=== PATIENT | female | born 1990 | race Caucasian/White ===

== ENCOUNTER → 2022-04-29 | Day surgery (SDC) | payer BC | END | disposition home or self-care (01) | LOC: JMAMMO-SUR 11:56 → JASU-SURG 11:56 | PROVIDERS: ATTEND Registered Nurse | PROC: 0H9U3ZX Drainage of Left Breast, Percutaneous Approach, Diagnostic (ICD-10-PCS; principal; 2022-04-29) | DX: D48.62 Neoplasm of uncertain behavior of left breast (principal) | CPT/HCPCS: 19083; 87899; 88305-TC; A4648 ==

== ENCOUNTER 2022-07-29 05:09 | Day surgery (SDC) | payer BC ==
[2022-07-27 09:58] VITALS: BMI 26.3
[2022-07-29] MEDS ORDERED: SUCCINYLCHOLINE CHLORIDE 200 MG/10 ML SYRINGE ONE (15:03)
[2022-07-29] MEDS ORDERED: MIDAZOLAM HCL 2 MG/2 ML SINGLE DOSE VIAL ONE (15:03)
[2022-07-29] MEDS ORDERED: PROPOFOL 20 ML ONE (15:03)
[2022-07-29] MEDS ORDERED: KETAMINE HCL 200 MG/20 ML VIAL ONE (15:04)
[2022-07-29] MEDS ORDERED: BUPIVACAINE HCL/PF 0.25% (2.5MG/ML) 10 ML VIAL ONE (15:12)
[2022-07-29] MEDS ORDERED: DEXMEDETOMIDINE HCL 200 MCG/2 ML IVPB ONE (15:13)
[2022-07-29] MEDS ORDERED: LIDOCAINE HCL 1% EPINEPHRINE 1:200,000 30 ML VIAL (PF) ONE (15:24)
[2022-07-29] MEDS ORDERED: LIDOCAINE HCL 0.5%, 5 MG/ML (50mL SDVIAL) ONE (15:47)
[2022-07-29] MEDS ORDERED: LIDOCAINE HCL 0.5%, 5 MG/ML (50mL SDVIAL) PNB ONE (15:51)
[2022-07-29] MEDS ORDERED: BUPIVACAINE HCL/PF 0.25% (2.5MG/ML) 10 ML VIAL IJ ONE (16:02)
[2022-07-29] MEDS ORDERED: ONDANSETRON 4 MG/2 ML VIAL IVPUSH PRN (16:33)
[2022-07-29] MEDS ORDERED: LACTATED RINGERS SOLUTION 1,000 ML IV SCH (16:45)
[2022-07-29 18:05] VITALS: RESP 18; TEMP 97.5
[2022-07-29 18:21] VITALS: BP 109/56; PULSE 57
== END 2022-07-29 18:29 | disposition home or self-care (01) ==
LOC: JASU-SURG 05:09
PROVIDERS: ATTEND Surgery Surgical Oncology
PROC: 0HBU0ZX Excision of Left Breast, Open Approach, Diagnostic (ICD-10-PCS; principal; 2022-07-29 13:00)
DX: D24.2 Benign neoplasm of left breast (principal)
CPT/HCPCS: 81025; 88307-TC; 94760

== ENCOUNTER 2023-11-22 08:14 | Emergency (ER) | payer BC ==
[2023-11-22 08:24] VITALS: BP 115/56; PULSE 88; RESP 20; TEMP 99; BMI 28.1
[2023-11-22] MEDS ORDERED: ACETAMINOPHEN 500 MG TABLET (FP) PO ONE (09:11)
[2023-11-22] MEDS ORDERED: ACETAMINOPHEN 500 MG TABLET (FP) ONE (09:44)
== END 2023-11-22 10:36 | disposition home or self-care (01) ==
LOC: JER 08:14
DX: U07.1 COVID-19 (principal); R05.9 Cough, unspecified; R50.9 Fever, unspecified; M79.10 Myalgia, unspecified site; R19.7 Diarrhea, unspecified; R11.0 Nausea
CPT/HCPCS: 0241U-QW; 71046-TC-FY; 99284-25